=== PATIENT | female | born 1960 | race Caucasian/White ===

== ENCOUNTER 2019-11-25 12:18 | Emergency (ER) | payer OTHER ==
[~2019-11-25] VITALS: Ht 154.9 cm; Wt 77.1 kg
[2019-11-25 12:34] VITALS: BP_SYST 122
[2019-11-25] MEDS ORDERED: ONDANSETRON 4 MG ODT TAB PO ONE (18:15)
[2019-11-25] MEDS ORDERED: MORPHINE 2 MG/ML INJ. SYRINGE IM ONE (18:15)
[2019-11-25 18:36] VITALS: BP_SYST 125
== END 2019-11-25 18:33 | disposition home or self-care (01) ==
LOC: SED 12:18
DX: M54.5 Low back pain (principal); Z76.0 Encounter for issue of repeat prescription
CPT/HCPCS: 96372; 99283; J2270; Q0162